=== PATIENT | female | born 1950 | race Caucasian/White ===

== ENCOUNTER 2022-07-28 22:44 | Emergency (ER) | payer OTHER ==
[2022-07-28] MEDS ORDERED: Amoxicillin/Potassium Clav 875 MG TAB ONE (23:11)
== END 2022-07-28 23:16 | disposition home or self-care (01) ==
LOC: BURERS 22:44
DX: L03.124 Acute lymphangitis of left upper limb (principal); J11.1 Influenza due to unidentified influenza virus with other respiratory manifestations; E11.9 Type 2 diabetes mellitus without complications; E03.9 Hypothyroidism, unspecified; I10 Essential (primary) hypertension; Z79.899 Other long term (current) drug therapy
CPT/HCPCS: 99283